=== PATIENT | female | born 1940 | race Caucasian/White ===

== ENCOUNTER 2017-07-28 10:14 | Outpatient (CLI) | payer MEDICARE, BC ==
--- NOTE | 2017-07-28 12:29 | RAD ---
TWO VIEW CHEST: CLINICAL HISTORY: Dyspnea. COMPARISON: 07/28/2016 FINDINGS: There remains hyperinflation in the lungs with generalized mild interstitial prominence. The cardiom ediastinal silhouette is stable. there is vascular calcification and osseous degenerative change. IMPRESSION: 1. No focal consolidation. 2. Stable chest. POS: [facility]
== END 2017-07-28 10:15 | disposition home or self-care (01) ==
LOC: RAD 10:14
PROVIDERS: ATTEND Internal Medicine Critical Care Medicine
DX: R06.00 Dyspnea, unspecified (principal)
CPT/HCPCS: 71046

== ENCOUNTER 2017-11-05 06:21 | Day surgery (SDC) | payer MEDICARE, BC ==
[2017-11-04 09:51] VITALS: BMI 26.5
--- NOTE | 2017-11-05 00:34 | HP ---
SHORT STAY HISTORY AND PHYSICAL DATE OF ADMISSION: 11/05/2017 HISTORY OF PRESENT ILLNESS: This is a 76-year-old female with history of colon polyps with polypectomy in 2013. The patient has abdominal pain recently. She also complains of diarrhea with loose stools off and on. No history of fever. No hematochezia. The patient comes in for colonoscop y with abdominal pain, loose stools and also history of colon polyp. ALLERGIES: SULFA and CELEBREX. SOCIAL HISTORY: Nonsmoker. MEDICAL ILLNESSES: 1. Hypertension. 2. Colon polyp. 3. Chronic acid reflux. 4. Osteoporosis. 5. Status post cholecystectomy. 6. History of depression and anxiety. PHYSICAL EXAMINATION: GENERAL: Appears comfortable. VITAL SIGNS: Pulse is 70, blood pressure 140/70. HEENT: Conjunctivae clear. NECK: Supple. No adenitis or thyromegaly noted. CARDIOVASCULAR SYSTEM: First and second heart sounds normal. LUNGS: Clear to auscultation. ABDOMEN: Soft to palpate. No organomegaly. Abdomen is slightly tender over the left greater quadra nt. There is no rebound or guarding. EXTREMITIES: Reveal no edema. ADMITTING DIAGNOSES: Abdominal pain, loose stools, and history of colon polyp. PLAN: Colonoscopy.
[2017-11-05] MEDS ORDERED: PROPOFOL 200 MG/20 ML VIAL ONE (17:01)
[2017-11-05] MEDS ORDERED: Lidocaine 1% PF 5 ML VIAL ONE (17:01)
[2017-11-05] MEDS ORDERED: ePHEDrine/0.9% NaCl/PF SYRINGE 50 mg/10 ml ONE (17:01)
--- NOTE | 2017-11-08 12:49 | OP ---
DATE OF PROCEDURE: 11/05/2017 OPERATIVE PROCEDURES: 1. Colonoscopy with polypectomy. 2. Colonoscopy with biopsies. PREOPERATIVE DIAGNOSES: Abdominal pain, history of colon polyp and intermittent diarrhea. POSTOPERATIVE DIAGNOSES: 1. Sessile cecal polyp, status post snare cautery. 2. Sigmoid diverticular disease. 3. Normal-appearing colonic mucosa without any colitis. 4. Random biopsies of the ascending colon, transverse colon, and sigmoid colon to rule out microscop ic colitis. PROCEDURE NOTE: The patient was placed on her left lateral position and undergone sedation by Anesth esia Department. A rectal exam was done before the scope was advanced into the rectum. No lesions w ere felt on rectal exam. A Pentax video colonoscope was introduced in the rectum and advanced all th e way to the cecum. The prep was good. The appendicular opening, ileocecal area, no pathology seen. A sessile cecal polyp removed with snare cautery. After the polyp was removed, there was mild oozi ng of blood noticed from the polypectomy site. A 7-Mohawk heater probe was passed with and dago ypectomy site cauterized with good hemostasis. The colonic mucosa appeared normal through the colon. There is no colitis seen. Random biopsies from the ascending colon, transverse colon, and sigmoid colon. The sigmoid colon does show mild diverticular disease . DISCHARGE PLANNING: Sherri Villalta is a very pleasant 76-year-old female who came for colo noscopy because of history of colon polyp, abdominal pain and also history of diarrhea. Underwent co lonoscopy with polypectomy and biopsy. DISCHARGE RECOMMENDATIONS: 1. The patient advised to call me if she does have abdominal pain and hematochezia. 2. In the absence of any of her symptoms, will come back to me in 2 weeks.
== END 2017-11-05 10:20 | disposition home or self-care (01) ==
LOC: SDC 06:21
PROVIDERS: ATTEND Internal Medicine Gastroenterology
PROC: 0DBK8ZX Excision of Ascending Colon, Via Natural or Artificial Opening Endoscopic, Diagnostic (ICD-10-PCS; principal; 2017-11-05)
PROC: 0DBL8ZX Excision of Transverse Colon, Via Natural or Artificial Opening Endoscopic, Diagnostic (ICD-10-PCS; 2017-11-05)
PROC: 0DBN8ZX Excision of Sigmoid Colon, Via Natural or Artificial Opening Endoscopic, Diagnostic (ICD-10-PCS; 2017-11-05)
PROC: 0DBH8ZX Excision of Cecum, Via Natural or Artificial Opening Endoscopic, Diagnostic (ICD-10-PCS; 2017-11-05)
DX: D12.0 Benign neoplasm of cecum (principal); K52.832 Lymphocytic colitis; K57.30 Diverticulosis of large intestine without perforation or abscess without bleeding; K21.9 Gastro-esophageal reflux disease without esophagitis; I10 Essential (primary) hypertension; M81.0 Age-related osteoporosis without current pathological fracture; F32.9 Major depressive disorder, single episode, unspecified; F41.9 Anxiety disorder, unspecified; Z86.010 Personal history of colon polyps; Z79.899 Other long term (current) drug therapy; Z88.2 Allergy status to sulfonamides; Z88.6 Allergy status to analgesic agent
CPT/HCPCS: 88305; J2001; J2704

== ENCOUNTER 2017-11-23 07:29 | Outpatient (CLI) | payer MEDICARE, BC ==
[2017-11-23] MEDS ORDERED: Iopamidol 370 76% 100 ML VIAL ONE (09:00)
--- NOTE | 2017-11-23 09:59 | CT ---
CT OF THE ABDOMEN AND PELVIS WITH IV CONTRAST: INDICATION: Dull right lower quadrant intermittent abdominal pain with a history of colonoscopy biopsy last month showing lymphocytic colitis of the ascending and sigmoid colon. COMPARISON: CT of the abdomen and pelvis without contrast dated 07/28/12. The small sub-4 mm right lower lobe pul monary nodules are stable. Small subcentimeter hypodensities within the right hepatic lobe are unchanged likely reflecting cysts . The pancreas, adrenal glands, and kidneys are normal-appearing. The spleen is normal-appearing. There is a normal appendix in the right lower quadrant of the abdomen. The colon is partially decomp ressed but without gross abnormality by CT. Small bowel is normal in caliber. The bladder is decomp ressed. The visualized uterus, rectum, and perirectal soft tissues are unremarkable. There is diffuse osteopenia. There is scattered degenerative and osteoarthritic change. IMPRESSION: 1. Stable sub-4 mm right lower lobe pulmonary nodules. These are stable since 2012 and are benign. 2. Stable hepatic cysts. 3. Cholecystectomy. 4. Decompressed colon without overt CT abnormality. 5. Normal appendix. 6. Diffuse osteopenia. POS: [facility]
== END 2017-11-23 07:30 | disposition home or self-care (01) ==
LOC: SCSCT 07:29
PROVIDERS: ATTEND Internal Medicine Gastroenterology
DX: R10.9 Unspecified abdominal pain (principal); R91.8 Other nonspecific abnormal finding of lung field; K76.89 Other specified diseases of liver; K63.89 Other specified diseases of intestine; M85.88 Other specified disorders of bone density and structure, other site; Z90.49 Acquired absence of other specified parts of digestive tract
CPT/HCPCS: 74177; 82565

== ENCOUNTER 2017-12-09 09:59 | Outpatient (CLI) | payer MEDICARE, BC | END 2017-12-09 10:00 | disposition home or self-care (01) | LOC: BICMAMMO 09:59 | PROVIDERS: ATTEND Family Medicine | DX: Z12.31 Encounter for screening mammogram for malignant neoplasm of breast (principal); L90.5 Scar conditions and fibrosis of skin; Z85.3 Personal history of malignant neoplasm of breast; Z80.3 Family history of malignant neoplasm of breast | CPT/HCPCS: 77063; 77067 ==

== ENCOUNTER 2018-08-25 09:05 | Outpatient (CLI) | payer MEDICARE, BC ==
--- NOTE | 2018-08-25 09:40 | RAD ---
CHEST TWO VIEWS: History: Dyspnea. Comparison: 07-28-17 FINDINGS: Mild increased linear and interstitial markings, evidence for stable chronic change. Mild biapical pl eural thickening. No confluent pneumonia, overt edema, or pleural effusion. IMPRESSION: Minimal bilateral stable chronic changes. No significant acute process. Atherosclerosis of the aorta. POS: [facility]
== END 2018-08-25 09:06 | disposition home or self-care (01) ==
LOC: RAD 09:05
PROVIDERS: ATTEND Internal Medicine Critical Care Medicine
DX: R06.00 Dyspnea, unspecified (principal); I70.0 Atherosclerosis of aorta
CPT/HCPCS: 71046

== ENCOUNTER 2018-10-10 15:17 | Outpatient (CLI) | payer MEDICARE, BC ==
--- NOTE | 2018-10-10 15:53 | RAD ---
LEFT FOOT THREE VIEWS: HISTORY: Foot pain. FINDINGS: The tarsals appear intact. There are mild degenerative changes in the intertarsal and tarsal metatar sals. The metatarsals appear intact. There is moderate DJD at the first MTP joint. The phalanges appear intact. IMPRESSION: Degenerative changes, as described. No acute fracture identified. POS: [facility]
== END 2018-10-10 15:18 | disposition home or self-care (01) ==
LOC: BICRAD 15:17
PROVIDERS: ATTEND Family Medicine
DX: M79.672 Pain in left foot (principal); M19.072 Primary osteoarthritis, left ankle and foot

== ENCOUNTER 2018-12-07 11:41 | Outpatient (CLI) | payer MEDICARE, BC ==
--- NOTE | 2018-12-07 12:39 | MRI ---
MRI Lumbar Spine Noncontrast: HISTORY: Low back pain radiating into bilateral lower extremities. Lumbar stenosis. COMPARISON: 07/17/2013 FINDINGS: Tiny subcentimeter increased T2-weighted signal intensity foci are seen in the midportion left kidney difficult to further characterize. Retroperitoneal structures otherwise demonstrate a normal nonenhanced MRI appearance. Conus medullaris is normal in morphology and terminates at the L1 level. There is slight heterogeneity of the bone marrow which is nonspecific. And increased T1 and T2-weight ed signal intensity focus is seen in the L1 vertebral body most compatible with a hemangioma. There is a disc osteophyte complex at the T10-11 level which results in mild mass effect on the ventr al subarachnoid space and encroachment anterior aspect spinal cord. The neural foramina appear patent based on sagittal imaging. L1-2: There is a minimal disc osteophyte complex with mild facet degenerative changes. There is no si gnificant central canal or neural foraminal narrowing. L2-3: There is a mild broad-based disc osteophyte complex. Prominent facet hypertrophic changes are p resent. There is moderate narrowing of the central spinal canal similar to the prior exam. Neural foramina are patent L3-4: There is a mild disc osteophyte complex with prominent facet hypertrophic changes and ligamento us thickening. Moderate narrowing of the central spinal canal is present. Mild neural foraminal narrowing is seen bilaterally. Findings have not progressed from prior study. L4-5: Again noted is slight anterolisthesis of L4 and L5. There is loss of intervertebral disc height . Broad-based disc osteophyte complex is present. There is severe facet hypertrophic changes and ligamentous thickening. Fluid signal intensity is seen in the facet joints bilaterally. Findings agai n result in severe narrowing of the central spinal canal as well as narrowing of the lateral recesses bilaterally. Mild bilateral neural foraminal narrowing is present. L5-S1: There is no disc bulge or disc herniation. Central spinal canal and neural foramina are patent . IMPRESSION: Multilevel degenerative changes greatest at the L4-5 level where there is slight grade 1 anterolisthe sis of L4 and L5 with severe facet hypertrophic changes and ligamentous thickening as well as disc osteophyte complex again resulting in severe central canal narrowing as well as narrowing of the late ral recesses.
== END 2018-12-07 11:42 | disposition home or self-care (01) ==
LOC: SCSMRI 11:41
PROVIDERS: ATTEND Specialist
DX: M48.061 Spinal stenosis, lumbar region without neurogenic claudication (principal); M47.816 Spondylosis without myelopathy or radiculopathy, lumbar region; M43.16 Spondylolisthesis, lumbar region
CPT/HCPCS: 72148

== ENCOUNTER 2018-12-29 10:35 | Outpatient (CLI) | payer MEDICARE, BC ==
--- NOTE | 2018-12-29 12:43 | MMO ---
Bilateral MAMMO Bilat Screen [facility]. CLINICAL HISTORY: Patient is 78 years old and is seen for screening. The patient has the following family history of breast cancer: maternal aunt. 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 The patient has a history of left Ultrasound Guided Core Biopsy in December, - benign, left Excisional Biopsy in Nov, 2007 - benign, left Excisional Biopsy in October, - malignant and left Lumpectomy in 2003 - malignant. VIEWS: The views performed were: bilateral craniocaudal with tomosynthesis; bilateral mediolateral oblique with tomosynthesis; and left craniocaudal. FILMS COMPARED: The present examination has been compared to prior imaging studies performed at [facility] on 07/27/2014, 08/23/2015, 08/25/2016 and 12/09/2017. MAMMOGRAM FINDINGS: There are scattered fibroglandular densities. Finding 1: There are stable post operative changes seen in the left breast. Finding 2: There are vascular calcifications seen in both breasts. There are no suspicious masses, suspicious calcifications, or new areas of architectural distortion. IMPRESSION: THERE IS NO MAMMOGRAPHIC EVIDENCE OF MALIGNANCY. A ROUTINE FOLLOW-UP MAMMOGRAM IN 1 YEAR IS RECOMMENDED. THE RESULTS OF THIS EXAM WERE SENT TO THE PATIENT. ACR BI-RADS Category 2 - Benign finding MAMMOGRAPHY NOTE: 1. A negative mammogram report should not delay a biopsy if a dominant of clinically suspicious mass is present. 2. Approximately 10% to 15% of breast cancers are not detected by mammography. 3. Adenosis and dense breasts may obscure an underlying neoplasm.
== END 2018-12-29 10:36 | disposition home or self-care (01) ==
LOC: BICMAMMO 10:35
PROVIDERS: ATTEND Family Medicine
DX: Z12.31 Encounter for screening mammogram for malignant neoplasm of breast (principal); Z80.3 Family history of malignant neoplasm of breast; Z85.3 Personal history of malignant neoplasm of breast
CPT/HCPCS: 77063; 77067

== ENCOUNTER 2019-01-26 08:49 | Outpatient (CLI) | payer MEDICARE, BC ==
--- NOTE | 2019-01-26 09:33 | RAD ---
LUMBAR SPINE 3 VIEWS: Date: 01/26/19 HISTORY: Lumbar radiculopathy. FINDINGS: Lateral views were obtained in neutral, flexion, and extension positions. COMPARISON: 02/13/04. FINDINGS/IMPRESSION: Lumbar vertebral maintain height. There is mild anterolisthesis at L3-4 and there is a Grade I spondylolisthesis at L4-5. Both of these listhesis have progressed when compared to the 2004 exam. No evidence of spondylolysis. There are mi ld degenerative osteophytes in the lumbar vertebra and there is prominent fat hypertrophy seen throug hout the lumbar spine. Aorta is calcified. The spondylolisthesis at L4-5 appears to exacerbate slight ly with flexion. POS: [facility]
== END 2019-01-26 08:50 | disposition home or self-care (01) ==
LOC: TBSIIMAG 08:49
PROVIDERS: ATTEND Neurological Surgery
DX: M54.16 Radiculopathy, lumbar region (principal); M43.16 Spondylolisthesis, lumbar region; M25.78 Osteophyte, vertebrae; I70.0 Atherosclerosis of aorta
CPT/HCPCS: 72100

== ENCOUNTER 2019-08-24 09:50 | Outpatient (CLI) | payer MEDICARE, BC ==
--- NOTE | 2019-08-24 10:42 | RAD ---
PA AND LATERAL CHEST: Date: 08/24/2019 HISTORY: Dyspnea. COMPARISON: 08/25/2018 study. FINDINGS: Heart size is within normal limits. Aorta is tortuous. Lungs are clear of infiltrates. There are arth ritic changes of the spine. IMPRESSION: No active intrathoracic disease. POS: [facility]
== END 2019-08-24 09:51 | disposition home or self-care (01) ==
LOC: RAD 09:50
PROVIDERS: ATTEND Internal Medicine Critical Care Medicine
DX: R06.00 Dyspnea, unspecified (principal)
CPT/HCPCS: 71046